=== PATIENT | male | born 2005 | race Caucasian/White ===

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

== ENCOUNTER → 2024-03-30 09:27 | Outpatient (REF) | payer BC, SELFPAY | LOC: RCS 09:27 | PROVIDERS: ATTENDING PHYSICIAN Internal Medicine Cardiovascular Disease; FAMILY PHYSICIAN Pediatrics | DX: R07.89 Other chest pain (principal) | CPT/HCPCS: 93017; 93306 ==

== ENCOUNTER → 2025-03-29 12:15 | Outpatient (REF) | payer BC, SELFPAY | LOC: PAVMRI 12:15 | PROVIDERS: ATTENDING PHYSICIAN Physician Assistant Medical | DX: M77.52 Other enthesopathy of left foot and ankle (principal); M76.62 Achilles tendinitis, left leg | CPT/HCPCS: 73718; 73721 ==